=== PATIENT | male | born 1970 | race Caucasian/White ===

== ENCOUNTER → 2021-03-16 | Outpatient (CLI) | payer BC ==
[~2021-03-16] VITALS: Ht 183 cm; Wt 162.0 kg
== END | disposition home or self-care (01) ==
LOC: PREOP 05:33
PROVIDERS: ATTEND Surgery
DX: Z01.818 Encounter for other preprocedural examination (principal)

== ENCOUNTER → 2021-03-23 | Day surgery (SDC) | payer BC ==
[~2021-03-23] VITALS: Ht 183 cm; Wt 162.0 kg
[~2021-03-23] MED LIST: LACTATED RINGERS 1,000 ML IV STA; MIDAZOLAM 2 MG/2 ML (VERSED) VIAL ONE; PROPOFOL INJECTION 50 ML IV ONE
[2021-03-23 07:15] VITALS: BP 135/91
[2021-03-23 08:51] VITALS: BP 122/66
[2021-03-23 08:55] VITALS: BP 121/70
--- NOTE | 2021-03-23 08:59 | Progress Note-Post Operative ---
Post-Operative Progess Note Surgeon (s)/Anglesmith (s) Surgeon NIELS ROY DO Anglesmith: TOBY Perales Pre-Operative Diagnosis Screening Colonoscopy Post-Operative Diagnosis Polyps int hemorrhoids Procedure & Operative Findings Date of Procedure 03/23/21 Procedure Performed/Findings Colonoscopy with snare polypectomy Colonoscopy with hot bx PROCEDURE NOTE: After informed consent was obtained, the patient was brought to the endoscopy suite, placed in bed in left lateral decubitus position. He was administered IV sedation by the BACKER UP who then monitored his vitals the entire time, heart rate, blood pressure and pulse ox and the scope was inserted, pushed all the way to about [address] noted a small flat polyp in the ascending colon and elected to do a hot biopsy of this. Then pushed into the cecum, took a picture of appendiceal orifice and noted the ileocecal valve. Found a larger polyp that I wanted to remove entirely, so took it off with a snare. Then slowly withdrew the scope insufflating to look circumferentially at the crystal starting in the cecum, up the ascending colon to the hepatic flexure, then down the transverse colon to the splenic flexure and into the descending colon. Found another larger polyp in the descending colon that I also removed by snare polypectomy and heat. Continued down into the sigmoid and then into the rectal vault and retroflexed the scope. Took a picture of the minimal internal hemorrhoids. The patient tolerated the procedure. He was recovered in endoscopy suite. Anesthesia Type IV sedation by BACKER UP Estimated Blood Loss Estimated blood loss (mL): scant Specimens/Packing Specimens Removed asc polyp cecal polyp desc polyp NIELS ROY DO Mar 23, 2021 08:59
--- NOTE | 2021-03-23 09:00 | Endoscopy Discharge Instruct ---
Endo Procedure/Findings Findings 1.: Polyp 2.: Internal Hemorrhoids Discharge Instructions - Activity: You might feel a little sleepy until tomorrow. This is due to the medicine you received to relax you. Until tomorrow, you should: NOT drive a car, operate machinery or power tools. NOT drink any alcoholic beverages. NOT make any important decisions or sign importortant papers. Do not return to work until tomorrow, unless otherwise instructed. Resume previous activities tomorrow. Diet: Start by taking liquids. If you tolerate liquids, advance to solid food. 1.: Colonscopy in 5 years Notify Physician - If you experience excessive bleeding, unusual abdominal pain, fever, or chest pain, contact your doctor immediately. NIELS ROY DO Mar 23, 2021 09:00
[2021-03-23 09:05] VITALS: BP 121/70
[2021-03-23 09:25] VITALS: BP 125/72
--- NOTE | 2021-03-23 10:18 | Anesthesia-General Post-Op ---
MAC Patient Condition Mental Status/LOC: Same as Preop Cardiovascular: Satisfactory Nausea/Vomiting: Absent Respiratory: Satisfactory Pain: Controlled Complications: Absent Post Op Complications Complications None Follow Up Care/Instructions Patient Instructions None needed. Anesthesiology Discharge Order Discharge Order Patient is doing well, no complaints, stable vital signs, no apparent adverse anesthesia problems. No complications reported per nursing. GILL GRIJALVA DIRECTOR OF REHABILITATION Mar 23, 2021 10:18
== END ==
LOC: ENDO 07:04
PROVIDERS: ATTEND Surgery
DX: Z12.11 Encounter for screening for malignant neoplasm of colon (principal); D12.2 Benign neoplasm of ascending colon; D12.0 Benign neoplasm of cecum; K64.8 Other hemorrhoids; G47.33 Obstructive sleep apnea (adult) (pediatric); E66.01 Morbid (severe) obesity due to excess calories; Z68.42 Body mass index [BMI] 45.0-49.9, adult; Z80.0 Family history of malignant neoplasm of digestive organs
CPT/HCPCS: 88305